=== PATIENT | female | born 1975 | race Caucasian/White ===

== ENCOUNTER → 2021-11-20 | Outpatient (CLI) | payer OTHER ==
--- NOTE | 2021-11-22 06:42 | MR ---
EXAMINATION TYPE: MR lumbar spine wo con DATE OF EXAM: 11/20/2021 COMPARISON: None HISTORY: Back pain Multiplanar multiecho imaging of the lumbar spine without contrast. The vertebra have normal alignment. Disc spaces are fairly normal for age. No compression fracture. T here is developmentally adequate spinal canal. No spinal stenosis. There is right-sided sacral cyst a t the S1 level. Lumbar nerve roots appear normal. The neural foramina are fairly well maintained. No spinal stenosis. Sacroiliac joints are intact. No focal bone destruction. No lumbar paraspinal mass. IMPRESSION: Negative MRI scan of the lumbar spine. Incidental sacral cyst at the S1 level.
== END | disposition home or self-care (01) ==
LOC: RADMRIMAIN 18:49
PROVIDERS: ATTEND Nurse Practitioner Family
DX: M54.16 Radiculopathy, lumbar region (principal); M51.36 Other intervertebral disc degeneration, lumbar region
CPT/HCPCS: 72148

== ENCOUNTER → 2023-05-26 | Outpatient (CLI) | payer OTHER ==
--- NOTE | 2023-05-27 18:34 | MM ---
Reason for Exam: Screening (asymptomatic). Last mammogram was performed 15 year(s) and 0 month(s) ago. Patient History: Menarche at age 14. First Full-Term at age 19. Estrogen for 6 months starting at age 46. Hormonal Contraceptives for 3 years from age 27 until age 30. Risk Values: Desi 5 year model risk: 0.6%. NCI Lifetime model risk: 6.9%. Prior Study Comparison: No prior studies available for comparison. Tissue Density: The breasts are heterogeneously dense, which may obscure small masses. Findings: Analyzed By CAD. Bilateral upper outer quadrant focal asymmetries may be superimposition shadow. Further evaluation is recommended. Otherwise, no suspicious microcalcification or other discrete abnormality is seen. Overall Assessment: Incomplete: need additional imaging evaluation, BI-RAD 0 Management: Special View Mammogram of both breasts. Additional views right breast to include spot 3-D CC, 3-D CC rolled, spot 3-D MLO, and 3-D lateral views. Additional views left breast include spot 3-D CC, 3-D CC rolled, and 3-D lateral views. Targeted ultrasound of either breast if any persistent abnormality. [facility] will attempt to contact patient to return for supplemental views and ultrasound if indicated. Electronically signed and approved by: Cynthia Orona M.D. Radiologist
== END | disposition home or self-care (01) ==
LOC: RADMAMWWP 16:31 → MERGE 16:45
PROVIDERS: ATTEND Family Medicine
DX: Z12.31 Encounter for screening mammogram for malignant neoplasm of breast (principal)
CPT/HCPCS: 77067

== ENCOUNTER → 2023-06-03 | Outpatient (CLI) | payer OTHER ==
--- NOTE | 2023-06-03 10:11 | MM ---
Reason for Exam: Follow-up at short interval from prior study. Last screening mammogram was performed less than 1 month ago. Patient History: Menarche at age 14. First Full-Term at age 19. Estrogen for 6 months starting at age 46. Hormonal Contraceptives for 3 years from age 27 until age 30. Risk Values: Desi 5 year model risk: 0.6%. NCI Lifetime model risk: 6.9%. Prior Study Comparison: 05/17/2008 Bilateral Diagnostic Mammogram, [facility]. 05/26/2023 Bilateral MG screening mammo w CAD, [facility]. Tissue Density: There are scattered areas of fibroglandular density. Findings: Analyzed By CAD. Area of concern/asymmetry compresses out on spot compression imaging. No suspicious masses, calcifications or distortions. Overall Assessment: Benign, BI-RAD 2 Management: Screening Mammogram of both breasts in 1 year. Results were given to the patient verbally at the time of exam. Patient should continue monthly self-breast exams. A clinical breast exam by your physician is recommended on an annual basis. This exam should not preclude additional follow-up of suspicious palpable abnormalities. Note on Desi scores and lifetime risk: 1. A Desi score greater than 3% is considered moderate risk. If this is the case, consider specialist referral to assess eligibility for a risk reducing agent. 2. If overall lifetime risk for the development of breast cancer is 20% or higher, the patient may qualify for future screening with alternating mammogram and breast MRI. Electronically signed and approved by: Fernandez Wills DO
== END | disposition home or self-care (01) ==
LOC: RADMAMWWP 09:43
PROVIDERS: ATTEND Family Medicine
DX: R92.323 Mammographic fibroglandular density, bilateral breasts (principal)
CPT/HCPCS: 77062; 77066

== ENCOUNTER → 2023-11-12 | Outpatient (CLI) | payer OTHER ==
--- NOTE | 2023-11-12 08:16 | US ---
EXAMINATION TYPE: US liver DATE OF EXAM: 11/12/2023 COMPARISON: NONE CLINICAL INDICATION: Female, 48 years old with history of R16.0 HEPATOMEGALY; Pt states her Dr palpat ed the liver and thought it was enlarged TECHNIQUE: Multiple sonographic images of the right upper quadrant are obtained. FINDINGS: EXAM MEASUREMENTS: Liver Length: 17.3 cm Gallbladder Wall: 0.19 cm CBD: 0.58 cm Right Kidney: 10.4 x 4.7 x 4.3 cm [employer] NOTES: Pancreas: wnl Liver: possibly enlarged vs Raysa lobe Gallbladder: Echogenic mobile area seen measuring 0.9cm Evidence for sonographic Marcos's sign: No CBD: wnl Right Kidney: wnl IMPRESSION: 1. No evidence for acute process. 2. Cholelithiasis.
== END | disposition home or self-care (01) ==
LOC: RADUSWWP 06:51
PROVIDERS: ATTEND Internal Medicine Rheumatology
DX: K80.20 Calculus of gallbladder without cholecystitis without obstruction (principal); R16.0 Hepatomegaly, not elsewhere classified
CPT/HCPCS: 76705